=== PATIENT | female | born 1960 | race Caucasian/White ===

== ENCOUNTER 2016-03-11 11:30 | Emergency (ER) | payer BC, OTHER | END 2016-03-11 13:20 | disposition home or self-care (01) | LOC: D.ER 11:30 | DX: T78.40XA Allergy, unspecified, initial encounter (principal); X58.XXXA Exposure to other specified factors, initial encounter ==

== ENCOUNTER → 2016-03-16 14:49 | Outpatient (CLI) | payer BC, OTHER | END | disposition home or self-care (01) | LOC: D.CT 14:49 | DX: I88.8 Other nonspecific lymphadenitis (principal) ==

== ENCOUNTER → 2016-04-25 19:13 | Outpatient (CLI) | payer MEDICARE, BC | END | disposition home or self-care (01) | LOC: D.MAMMO → D.US 04-21 10:30 → D.MAMMO 13:30 | DX: R92.8 Other abnormal and inconclusive findings on diagnostic imaging of breast (principal) ==